=== PATIENT | male | born 2000 | race Two or more races ===

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

== ENCOUNTER 2018-09-29 05:08 | Emergency (ER) | payer BC, MEDICAID ==
[~2018-09-29] VITALS: Ht 185.4 cm; Wt 81.6 kg
[2018-09-29] MEDS ORDERED: ONDANSETRON ODT 4 MG TAB PO ONE (07:45)
[2018-09-29] MEDS ORDERED: FAMOTIDINE 20 MG TAB PO ONE (07:45)
[2018-09-29 08:15] VITALS: BP 149/98
== END 2018-09-29 08:41 | disposition home or self-care (01) ==
LOC: ER 05:08
DX: F12.188 Cannabis abuse with other cannabis-induced disorder (principal)
CPT/HCPCS: 99283; Q0162